=== PATIENT | male | born 1995 | race Caucasian/White ===

== ENCOUNTER 2022-10-02 17:18 | Observation (INO) | payer BC ==
[2022-10-02 17:58] LABS: #Basophils 0.1 10x3/uL (0.0-0.2); #Eosinphils 0.3 10x3/uL (0.0-0.5); #Monocytes 0.6 10x3/uL (0.0-1.1); #Neutrophils 5.9 10x3/uL (1.5-8.4); %Basophils 0.6 % (0.0-2.0); %Eosinophils 3.1 % (0.0-6.0); %Lymphocytes 22.8 % (18.0-47.0); %Monocytes 6.9 % (0.0-10.0); %Neutrophils 66.3 % (40.0-75.0); Hemoglobin 14.6 g/dL (13.5-17.5); Mean Corpuscular HGB CONC 33.3 g/dL (32.0-36.0); Mean Corpuscular Hemoglobin 30.2 pg (27.0-33.0); Mean Corpuscular Volume 90.9 fl (81.2-95.1); Mean Platelet Volume 9.4 fl (7.4-10.4); Platelet Count 306 10x3/uL (150-450); Red Blood Cell (RBC) Count 4.83 10x6/uL (4.32-5.72)
[2022-10-02 18:03] LABS: D-Dimer Test Less than 0.19 mg/L FEU (0.19-0.50); PTT 28.2 sec (22.0-33.0); Prothrombin Time 10.5 sec (9.5-12.1)
[2022-10-02 18:07] LABS: Acetaminophen Less than 10 mcg/mL (10.0-30.0); Alcohol Less than 10.0 mg/dL (Less than 10); Salicylate Less than 8.0 mg/dL (15.0-30.0)
[2022-10-02] MEDS ORDERED: Magnesium 2 GM/50 ML BAG (IN WATER) ONE (18:07)
[2022-10-02 18:10] LABS: ALT (SGPT) 30 U/L (8-55); AST (SGOT) 34 U/L (5-34); Albumin 4.6 g/dL (3.5-5.0); Alkaline Phosphatase 134 U/L (40-110); Anion Gap 15 mmol/L (10-20); BUN (Urea Nitrogen) 15 mg/dL (8.9-20.6); Bilirubin, Total 0.3 mg/dL (0.2-1.2); Calc. Creatinine Clearance 0 mL/min (70-130); Calcium 10.1 mg/dL (7.8-10.44); Carbon Dioxide 26 mmol/L (22-29); Chloride 103 mmol/L (98-107); Estimated GFR 95; Globulin 3.5 g/dL (2.4-3.5); Glucose 90 mg/dL (70-105); Protein, Total 8.1 g/dL (6.0-8.3); Sodium 140 mmol/L (136-145)
[2022-10-02 18:16] LABS: Bilirubin Neg (Negative); Blood, Urine Negative (Negative); Clarity Clear (Clear); Glucose, Urine (Dipstick) Normal (Negative); Ketone, Urine Negative (Negative); Leukocyte Negative (Negative); Nitrite Negative (Negative); Protein, Urine (Dipstick) Negative (Neg-Trace); Urobilinogen Normal mg/dL (Less than 2); pH, Urine 6.5 (5.0-9.0)
[2022-10-02 18:23] LABS: Amphetamine Not Detected (NotDetected); Barbiturates Screen Not Detected (NotDetected); Benzodiazepine Screen Not Detected (NotDetected); Cocaine Metabolite Screen Not Detected (NotDetected); Methadone Not Detected (NotDetected); Methamphetamine Not Detected (NotDetected); Opiate Screen Not Detected (NotDetected); Oxycodone Screen Not Detected (NotDetected); Phencyclidine (PCP) Not Detected (NotDetected); THC/Cannabinoid Screen Not Detected (NotDetected); Tricyclic Screen Not Detected (NotDetected)
[2022-10-02 18:53] LABS: Bacteria/HPF Rare-Few HPF (None Seen); CAUTI Indications for Culture < 2yrs of age; RBC/HPF None Seen HPF (0-3); WBC/HPF None Seen HPF (0-3)
[2022-10-02 18:54] LABS: Urine Culture Reflex Yes Yes
[2022-10-02] MEDS ORDERED: Zolpidem Tartrate 5 MG TAB PO PRN (19:50)
[2022-10-02] MEDS ORDERED: Acetaminophen 325 MG TAB PO PRN (19:50)
[2022-10-02] MEDS ORDERED: Ondansetron PF 4 MG/2 ML Vial IVP PRN (19:50)
[2022-10-02] MEDS ORDERED: Calcium Carbonate 500 MG ChewTAB PO PRN (19:50)
[2022-10-02] MEDS ORDERED: Lactated Ringer's 1,000 ML IV SCH (20:00)
[2022-10-02 21:20] VITALS: BMI 30.2
[2022-10-03 04:14] LABS: Anion Gap 11 mmol/L (10-20); BUN (Urea Nitrogen) 13 mg/dL (8.9-20.6); Calc. Creatinine Clearance 184 mL/min (70-130); Calcium 9.2 mg/dL (7.8-10.44); Carbon Dioxide 26 mmol/L (22-29); Chloride 105 mmol/L (98-107); Estimated GFR 120; Glucose 96 mg/dL (70-105); Potassium 3.6 mmol/L (3.5-5.1); Sodium 138 mmol/L (136-145)
[2022-10-03] MEDS ORDERED: Aspirin 81 mg Enteric Coated Tablet PO SCH (09:00)
[2022-10-03 09:15] VITALS: BP 109/66; TEMP 97.8
== END 2022-10-03 12:55 | disposition home or self-care (01) ==
LOC: CSHERS 17:18 → CSHTELE 20:43
PROVIDERS: ADMIT Student in an Organized Health Care Education/Training Program; ATTEND Internal Medicine
DX: I48.91 Unspecified atrial fibrillation (principal); R00.2 Palpitations; R06.81 Apnea, not elsewhere classified; I10 Essential (primary) hypertension; Z88.1 Allergy status to other antibiotic agents
CPT/HCPCS: 71045; 80048; 80053; 80306; 80307; 81001; 82550; 83735; 83880; 84443; 84484; 85025; 85379; 85610; 85730; 87086; 93005; 93010; 93306; 94760; 96365; G0378; J3475; J7120